=== PATIENT | male | born 1935 | race Caucasian/White ===

== ENCOUNTER 2020-08-19 07:37 | Inpatient (IN) | payer MEDICARE ==
--- NOTE | 2020-08-18 05:22 | HP ---
DATE OF ANTICIPATED ADMISSION: 08/19/2020. CHIEF COMPLAINT: Asymptomatic carotid bruit. HISTORY OF PRESENT ILLNESS: The patient is an 85-year-old man with stable angina. He underwent a community-based ultrasonographic screening panel that suggested carotid stenosis. This was corroborated by formal carotid ultrasound and confirmed by CT angiography. The patient denies any eye, speech, facial, or extremity symptoms consistent with TIAs. PAST MEDICAL HISTORY: Significant for coronary artery disease. He underwent cardiac catheterization a few years ago, working up angina, and medical management was pursued. He has mild chest squeezing when he walks long distances. On an echo in 06/2019 he had a peak transaortic gradient of about 20 mmHg (11 mm mean on echocardiography) and an LVEF of 50-55%. HOME MEDICATIONS: 1. Flomax. 2. Pitavastatin 2 mg a day. 3. Zetia 10 mg a day. 4. Baby aspirin a day. SOCIAL HISTORY: He smoked briefly in his 20s. FAMILY HISTORY: Significant for multiple first degree relatives living into their 90s or even past 100. He says that he is the youngest child with several siblings still alive and well in their 90s. REVIEW OF SYSTEMS: Negative for any TIA symptoms. It is positive for his class 2 angina. Negative for any shortness of breath. PHYSICAL EXAMINATION: VITAL SIGNS: His heart rate is 72, blood pressure 154/76. He is 5 feet and 8 inches, and weighs 179.5 pounds. HEENT: He has no xanthelasma. Very soft right carotid bruit. CHEST: Clear to auscultation. He has 1 to 2/6 harsh systolic murmur throughout the left sternal border. He has no gallop. He has palpable radials bilaterally. NEUROLOGIC: Cranial nerves 2 through 12 were grossly intact with the exception of being hard of hearing. His extremity strength is grossly normal and symmetric. DIAGNOSTIC STUDIES: His carotid ultrasound shows right-sided internal carotid velocities of 300, 199, and 112 cm/second with common carotid velocities of 111, 74, and 65, for a ratio of 4.07. On the left side, his internal carotid velocities are 77, 182, and 78, with common carotid velocities of 125, 92 and 74, for a ratio of 1.97. His CT angiogram shows about an 80% to 90% right carotid stenosis and about 30% or 40% left carotid stenosis. IMPRESSION AND RECOMMENDATIONS: High-grade asymptomatic carotid stenosis. We will plan on right carotid endarterectomy. Job ID: [id number] MTDD
[2020-08-18 10:53] VITALS: BMI 26.6
[~2020-08-19 07:37] MED LIST: Fentanyl 100 MCG/2 ML VIAL ONE
[2020-08-19] MEDS ORDERED: Heparin 5,000 UNITS/ML VIAL ONE (07:48)
[2020-08-19] MEDS ORDERED: Protamine Sulfate 50 MG/5 ML VIAL ONE (07:48)
[2020-08-19] MEDS ORDERED: Ondansetron PF 4 MG/2 ML Vial ONE (09:25)
[2020-08-19] MEDS ORDERED: Rocuronium Bromide 10 MG/ML (10ML VIAL) ONE (09:25)
[2020-08-19] MEDS ORDERED: PROPOFOL 200 MG/20 ML VIAL ONE (09:25)
[2020-08-19] MEDS ORDERED: Lidocaine 1% PF 5 ML VIAL ONE (09:25)
[2020-08-19] MEDS ORDERED: EPHEDRINE 25 MG/5 ML SYRINGE ONE (09:25)
[2020-08-19] MEDS ORDERED: PHENYLEPHRINE-NS 100 MCG/ML 10 ML SYRINGE ONE (09:25)
[2020-08-19] MEDS ORDERED: Glycopyrrolate 0.2 MG/ML 5 ML SYRINGE ONE (09:25)
[2020-08-19] MEDS ORDERED: Fentanyl 100 MCG/2 ML VIAL SLOW IVP PRN ×2 (12:23)
[2020-08-19] MEDS ORDERED: Acetaminophen 325 MG TAB PO PRN (12:23)
[2020-08-19] MEDS ORDERED: HYDROcodone/Acetaminophen 5/325 mg Tablet PO PRN ×2 (12:23)
[2020-08-19] MEDS ORDERED: Ondansetron PF 4 MG/2 ML Vial IVP PRN (12:23)
[2020-08-19] MEDS ORDERED: Phenylephrine 10 MG/ML VIAL ONE (13:00)
[2020-08-19] MEDS ORDERED: ePHEDrine 50 MG/ML VIAL ONE (16:04)
[2020-08-19] MEDS ORDERED: Promethazine HCl 25 MG/ML VIAL IM PRN (16:19)
[2020-08-19] MEDS ORDERED: Promethazine HCl 25 MG/ML VIAL SLOW IVP PRN (16:19)
[2020-08-19] MEDS ORDERED: Ondansetron HCl/PF 4 MG/2 ML Vial IVP PRN (16:19)
[2020-08-19] MEDS ORDERED: Fentanyl 100 MCG/2 ML VIAL ONE ×2 (16:50→18:11)
[2020-08-19 16:55] LABS: #Basophils 0.1 thou/uL (0.0-0.2); #Eosinphils 0.1 thou/uL (0.0-0.7); #Lymphocytes 2.7 thou/uL (1.20-3.40); #Monocytes 1.4 thou/uL (0.11-0.59); #Neutrophils 15.4 thou/uL (1.40-6.50); %Basophils 0.5 % (0.0-1.0); %Eosinophils 0.5 % (0.0-10.0); %Lymphocytes 13.5 % (21.0-51.0); %Monocytes 7.3 % (0.0-10.0); %Neutrophils 78.2 % (42.0-75.0); Mean Corpuscular HGB CONC 34.2 g/dL (32.0-36.0); Mean Corpuscular Hemoglobin 36.8 pg (27.0-31.0); Mean Platelet Volume 7.4 fL (7.4-10.4); Platelet Count 165 thou/uL (130-400); RBC Distribution Width 11.1 % (11.5-14.5); Red Blood Cell (RBC) Count 2.98 mill/uL (4.70-6.10); White Blood Cell (WBC) Count 19.7 thou/uL (4.8-10.8)
[2020-08-19] MEDS ORDERED: Phenylephrine 40 MG in Sodium Chloride 0.9% 250 ML 250 ML IVPB SCH (17:45)
[2020-08-19] MEDS: Sodium Chloride 0.9% 1,000 ML IV SCH (19:56)
--- NOTE | 2020-08-19 20:57 | OP ---
DATE OF PROCEDURE: 08/19/2020 PROCEDURE PERFORMED: Right carotid endarterectomy. PREOPERATIVE DIAGNOSIS: Right carotid stenosis. POSTOPERATIVE DIAGNOSIS: Right carotid stenosis. ANESTHESIA: General endotracheal anesthesia. INDICATIONS: The patient is an 85-year-old man, who is rather active. He underwent a community-based ultrasonographic screening that suggested carotid stenosis and this was corroborated by formal ultrasonography of his carotids, that demonstrated modestly elevated left-sided internal carotid velocities and ratio, but markedly elevated velocities and ratios on the right side. CT arteriography confirmed an 80% to 90% right carotid stenosis with about 30% or 40% left carotid lesion. After discussing natural history of carotid stenoses and treatment options, he has opted to undergo a right carotid endarterectomy. FINDINGS: Unable to advance the carotid shunt more than just a very few millimeter distal to the extent of the initial arteriotomy, and in order to aspirate on the shunt, it had to be withdrawn 1 or 2 mm. Difficulty with maintaining adequate flow from the shunt, ultimately required further mobilization of the internal carotid artery and extension of the arteriotomy, leading to the identification of a second lesion and plaque elevation. Initial pre-shunt clamp time was 9 minutes and shunt time 6 minutes. Followup clamp time was 12 minutes and shunt time 71 minute with a post-shunt clamp time at the termination of the procedure of 3 minutes. There was good ICA back bleeding, and at the conclusion of the procedure, the patient was lethargic and confused and unable to follow commands, but was able to move all extremities spontaneously. DESCRIPTION OF PROCEDURE: After informed consent was obtained, the patient was taken to the operating room and placed in the supine position on the operating table. After the induction of general anesthesia, the patient's neck was extended and rotated towards the left. His right neck was then prepped and draped in sterile fashion. An oblique incision was made in the skin crease on the neck with a knife and electrocautery, the incision was carried through the subcutaneous tissue and platysma and then anterior medial to the sternocleidomastoid muscle and internal jugular vein. The facial vein and other tributaries of the jugular system crossing the operative field were ligated and divided. The common carotid artery was dissected free from the sheath and the vagus nerve and looped with a vessel loop. The dissection was carried cephalad. The external carotid system was looped with a vessel loop. The dissection was carried up beyond the level of the digastric muscle, hypoglossal nerve. The sling vessels were ligated and divided and occipital branch was left intact as exposure of normal appearing and feeling internal carotid artery well beyond the palpable plaquing in its proximal 3 or 4 cm, and the patient was heparinized and after adequate circulation time of heparin, the internal carotid, common carotid, and external carotid systems were sequentially occluded. A longitudinal arteriotomy was made in the distal common carotid artery and extended proximally and distally with Tomlin scissors. The arteriotomy was extended beyond a web-like stenosis up onto a fairly normal-appearing internal carotid artery. An endarterectomy plane was developed with the tip of Tomlin scissors at the level of the distal common carotid artery and that was further developed using an elevator. The plaque was smoothly transected in the common carotid, everted from the external carotid system, and then broken off distally in the internal carotid. That distal feather was fairly easily tailored and then an intraluminal carotid shunt was inserted. It could only be advanced 3 to 4 mm, perhaps 5 beyond the extent of the arteriotomy without forcing it, and in order to aspirate, it had to be withdrawn about a millimeter or two. With that limb of the shunt clamped and held in position, the common carotid limb was advanced into the common carotid artery and aspirated, but allowing antegrade flow through the shunt, there was difficulty maintaining the shunt intraluminally and avoiding backbleeding around the shunt, even with the use of a shunt clamp. Shunting at that point was abandoned and forceps were used to maintain control of the internal carotid artery distal to the arteriotomy. Sharp and blunt dissection were used to mobilize more of the internal carotid artery, and when this had been accomplished, it became apparent that there was a second lesion distal to the previously isolated segment that had not been appreciated on the patient's previous imaging studies. The arteriotomy was extended beyond that. There was a small purplish area of the artery that was certainly quite worrisome for dissection, but the arteriotomy could be extended into a relatively normal internal carotid artery and it could be appreciated that plaque had probably been elevated, but a true dissection had not occurred. The elevated plaque was transected and then a straight 10-Togolese shunt was inserted. It had been placed in the common carotid artery first to allow for antegrade flushing, and then with it clamped, it was placed into the vessel that was considerably larger than the shunt, allowing for back bleeding before applying a shunt clamp. The distal transection was inspected and tailored somewhat and then tacked in place with several longitudinally oriented interrupted 7-0 Prolene sutures with the knots tied on the outside. The endarterectomy bed was inspected, so much endarterectomized vessel had been mobilized. That inspection of the entire endarterectomy bed was quite problematic, at first with the distal endarterectomy bed adequately debrided, an 8 cm bovine pericardial patch was brought to the field. It was oriented and then anastomosed to the endarterectomized artery distally coming around the distal extent of the arteriotomy and then progressing along one side medially down to the full extent of the patch, where it tapered down at the level of the base of the carotid bulb. This allowed for a more thorough inspection of the endarterectomy bed to complete its debridement. The lateral aspect of the suture line was taken down on the patch down to nearly the full extent of the patch at the bulb. The suture line was then brought up from the common carotid arteriotomy apex to the tip of the patch from the medial aspect and the suture line was secured there to allow for a very short remaining defect, through which the shunt was removed. Vascular control was reestablished on the common carotid with a vascular clamp and on the origin of the internal carotid with a vessel loop. The remaining suture line was completed and frustrated. The vessels were allowed to forward and backbleed to allow for flushing of any air or residual debris out the arteriotomy or into the external carotid system. Suture line was secured and antegrade flow was allowed first into the external carotid and then into the internal carotid system. Two bleeding points on the distal lateral aspect of the suture line were controlled, one with a simple suture and one with a [id number] suture. At that point, hemostasis was grossly adequate. The wound was packed off and the patient was given a partial reversal of heparin with protamine. After several minutes, the packing was removed and the suture line inspected. Hemostasis was adequate. The endarterectomized and patched segment of internal carotid that had been mobilized was quite tortuous. Surgicel was used to facilitate positioning of the vessel, so that it would not kink. The wound was then closed with running 3-0 Prolene, running 3-0 Vicryl for the platysma, and a running 4-0 Vicryl subcuticular suture and Steri-Strips for the skin. The wound was dressed, and the patient was awakened and extubated in the operating room. He initially was quite confused and did not follow commands well. There was some asymmetry to regaining spontaneous movement with right-sided movement starting first and then left-sided movement spontaneously. He was transported to the recovery area and as his sensorium cleared, he was able to follow commands with all 4 extremities with decreasing asymmetry and improving left-sided strength. Job ID: [id number]
[2020-08-19] MEDS ORDERED: Tamsulosin HCl 0.4 MG CAP PO SCH (21:00)
[2020-08-19] MEDS ORDERED: Atorvastatin Calcium 10 MG TAB PO SCH (21:00)
[2020-08-19] MEDS ORDERED: Aspirin 81 mg Enteric Coated Tablet PO SCH (21:00)
[2020-08-19] MEDS: Ezetimibe 10 MG TAB PO SCH ×2 (21:58→22:50)
[2020-08-20] MEDS: Sodium Chloride 0.9% 1,000 ML IV SCH ×2 (00:31→08:50)
[2020-08-20 05:30] LABS: #Eosinphils 0.1 thou/uL (0.0-0.7); #Monocytes 1.9 thou/uL (0.11-0.59); #Neutrophils 15.8 thou/uL (1.40-6.50); %Basophils 0.2 % (0.0-1.0); %Eosinophils 0.4 % (0.0-10.0); %Monocytes 9.6 % (0.0-10.0); %Neutrophils 79.8 % (42.0-75.0); Hemoglobin 10.3 g/dL (14.0-18.0); Mean Corpuscular HGB CONC 34.5 g/dL (32.0-36.0); Mean Corpuscular Hemoglobin 37.3 pg (27.0-31.0); Mean Platelet Volume 8.3 fL (7.4-10.4); Platelet Count 204 thou/uL (130-400); RBC Distribution Width 11.2 % (11.5-14.5); Red Blood Cell (RBC) Count 2.77 mill/uL (4.70-6.10); White Blood Cell (WBC) Count 19.8 thou/uL (4.8-10.8)
[2020-08-20] MEDS ORDERED: Tamsulosin HCl 0.4 MG CAP PO SCH (08:45)
[2020-08-20 08:47] VITALS: TEMP 98.4
[2020-08-20] MEDS ORDERED: traMADol HCl 50 MG TAB PO PRN (08:47)
--- NOTE | 2020-08-21 01:21 | DIS ---
DATE OF ADMISSION: 08/19/2020 DATE OF DISCHARGE: 08/20/2020 PRINCIPAL DIAGNOSIS: Right carotid stenosis. PROCEDURES PERFORMED: Right carotid endarterectomy with bovine pericardial patch angioplasty, 08/19/2020. HISTORY OF PRESENT ILLNESS AND HOSPITAL COURSE: The patient is a fairly robust 85-year-old who participated in community ultrasound screening that suggested carotid disease. Formal carotid ultrasound suggested moderate disease in the left carotid system, but high-grade stenosis in the right. This was confirmed by CTA with that imaging modality demonstrating about an 80% or 90% right carotid stenosis and a 30% or 40% left. He was admitted for right carotid endarterectomy. That procedure was quite notable for difficulty passing the internal carotid limb of the shunt due to what proved to be a 2nd lesion in the internal carotid distal to the extent of the original arteriotomy. This was associated with plaque elevation, significant blood loss, and ultimately a very long endarterectomized segment of carotid that required a very long shunt time to endarterectomize and patch. He was somewhat slow to wake up and there was some initial asymmetry and a spontaneous movement that gradually resolved over the next hour or two. He had some labile blood pressure. His hemoglobin was in the 11s postoperatively, it was 10.3 the morning after surgery. His blood pressure initially required the use of Chano-Synephrine to stabilize after having only transient response to fluid administration that gradually improved and he was successfully weaned off the Chano-Synephrine during the night and on postoperative day #1, his only issue was that of urinary retention. His vitals were stable. His voice was normal. His tongue was midline. His smile was symmetric and he was able to move all of his extremities equally and normally. He was able to breathe and swallow without any difficulty and there was minimal swelling associated with his wound. When he was able to void, he was discharged home to resume his home medications. Job ID: [id number]
[2020-08-21] MEDS ORDERED: Tamsulosin HCl 0.4 MG CAP PO SCH (21:00)
== END 2020-08-20 12:34 | disposition home or self-care (01) | DRG 39 ==
LOC: SURG A 07:37 → CCU 12:23
PROVIDERS: ADMIT Thoracic Surgery (Cardiothoracic Vascular Surgery); ATTEND Thoracic Surgery (Cardiothoracic Vascular Surgery)
PROC: 03CH0ZZ Extirpation of Matter from Right Common Carotid Artery, Open Approach (ICD-10-PCS; principal; 2020-08-19)
PROC: 03CM0ZZ Extirpation of Matter from Right External Carotid Artery, Open Approach (ICD-10-PCS; 2020-08-19)
PROC: 03CK0ZZ Extirpation of Matter from Right Internal Carotid Artery, Open Approach (ICD-10-PCS; 2020-08-19)
PROC: 03UK0KZ Supplement Right Internal Carotid Artery with Nonautologous Tissue Substitute, Open Approach (ICD-10-PCS; 2020-08-19)
DX: I65.21 Occlusion and stenosis of right carotid artery (principal); I25.118 Atherosclerotic heart disease of native coronary artery with other forms of angina pectoris; I73.9 Peripheral vascular disease, unspecified; N40.0 Benign prostatic hyperplasia without lower urinary tract symptoms; Z79.82 Long term (current) use of aspirin; Z79.899 Other long term (current) drug therapy; Z87.891 Personal history of nicotine dependence
CPT/HCPCS: 85025; 86850; 86900; 86901; J1642; J1644; J2370; J2405; J2704; J2720; J3010; J3490; J7620

== ENCOUNTER 2022-03-07 09:14 | Outpatient (CLI) | payer MEDICARE | END 2022-03-07 09:15 | disposition home or self-care (01) | LOC: RAD 09:14 | PROVIDERS: ATTEND Surgery | DX: K81.0 Acute cholecystitis (principal); Z97.8 Presence of other specified devices | CPT/HCPCS: 47531 ==

== ENCOUNTER 2022-03-30 09:17 | Outpatient (CLI) | payer MEDICARE ==
[2022-03-30 11:19] LABS: #Basophils 0.1 10x3/uL (0.0-0.2); #Eosinphils 0.2 10x3/uL (0.0-0.5); #Monocytes 0.9 10x3/uL (0.0-1.1); #Neutrophils 5.9 10x3/uL (1.5-8.4); %Basophils 1.4 % (0.0-2.0); %Eosinophils 1.7 % (0.0-6.0); %Lymphocytes 21.9 % (18.0-47.0); %Monocytes 9.4 % (0.0-10.0); Hemoglobin 12.4 g/dL (13.5-17.5); Mean Corpuscular HGB CONC 31.6 g/dL (32.0-36.0); Mean Corpuscular Hemoglobin 34.2 pg (27.0-33.0); Mean Platelet Volume 9.8 fl (7.4-10.4); Platelet Count 283 10x3/uL (150-450); RBC Distribution Width 12.4 % (11.5-14.5); Red Blood Cell (RBC) Count 3.63 10x6/uL (4.32-5.72); White Blood Cell (WBC) Count 9.1 10x3/uL (3.5-10.5)
[2022-03-30 11:41] LABS: Macrocytosis SLIGHT = 6-15 cells (100X) (0-5/hpf); Platelet Morphology Comment Appears Adequate
[2022-03-30 11:48] LABS: ALT (SGPT) 11 U/L (8-55); AST (SGOT) 15 U/L (5-34); Albumin 3.7 g/dL (3.4-4.8); Alkaline Phosphatase 72 U/L (40-110); Anion Gap 14 mmol/L (10-20); BUN (Urea Nitrogen) 15 mg/dL (8.4-25.7); Bilirubin, Direct 0.4 mg/dL (0.1-0.3); Bilirubin, Total 0.8 mg/dL (0.2-1.2); Calc. Creatinine Clearance 0 mL/min (70-130); Calcium 9.2 mg/dL (7.8-10.44); Carbon Dioxide 26 mmol/L (23-31); Chloride 105 mmol/L (98-107); Globulin 2.5 g/dL (2.4-3.5); Glucose 89 mg/dL (83-110); Potassium 4.6 mmol/L (3.5-5.1); Protein, Total 6.2 g/dL (5.8-8.1); Sodium 140 mmol/L (136-145)
[2022-03-30 20:33] LABS: SARS-CoV-2 PCR by NAA Not Detected (NotDetected)
== END 2022-03-30 09:18 | disposition home or self-care (01) ==
LOC: LABBT 09:17
PROVIDERS: ATTEND Surgery
DX: Z01.812 Encounter for preprocedural laboratory examination (principal); K81.0 Acute cholecystitis
CPT/HCPCS: 80053; 80076; 85025; U0003; U0005

== ENCOUNTER 2022-04-04 06:54 | Observation (INO) | payer MEDICARE ==
[2022-04-04] MEDS ORDERED: fentaNYL Citrate/PF 100 MCG/2 ML SYRINGE ONE (09:14)
[2022-04-04] MEDS ORDERED: Lidocaine 1% w/Epinephrine 1:100K 20 ML VIAL ONE (09:19)
[2022-04-04] MEDS ORDERED: Sodium Chloride 0.9% 100 ML ONE (09:30)
[2022-04-04] MEDS ORDERED: cefOXitin 2 GM VIAL ONE (09:30)
[2022-04-04] MEDS ORDERED: Bupivacaine 0.25% HCL 30 ML VIAL ONE (09:35)
[2022-04-04] MEDS ORDERED: Ondansetron PF 4 MG/2 ML Vial ONE (09:54)
[2022-04-04] MEDS ORDERED: PHENYLEPHRINE-NS 100 MCG/ML 10 ML SYRINGE ONE (09:54)
[2022-04-04] MEDS ORDERED: Rocuronium Bromide 10 MG/ML (10ML VIAL) ONE (09:54)
[2022-04-04] MEDS ORDERED: Metoclopramide HCl 10 MG/2 ML VIAL ONE (09:54)
[2022-04-04] MEDS ORDERED: PROPOFOL 200 MG/20 ML VIAL ONE (09:54)
[2022-04-04] MEDS ORDERED: SUGAMMADEX SODIUM 200 MG/2 ML VIAL ONE (10:25)
[2022-04-04] MEDS ORDERED: HYDROcodone/Acetaminophen 5/325 mg Tablet ONE ×2 (11:58→12:39)
[2022-04-04 15:36] LABS: Actual Bicarbonate (HCO3v) 22 mEq/L (22-28); Base Excess -5.5 mEq/L (-2.0 to +3.0); Calcium, Ionized (venous) 1.14 mmol/L (1.16-1.32); Chloride (VBG) 101 mmol/L (98-106); Hemoglobin (Hb) 14.9 g/dL (12.6-17.4); Potassium (VBG) 4.46 mmol/L (3.70-5.30); Sodium 136.8 mmol/L (133-146); pH (venous) 7.27 (7.32-7.43)
[2022-04-04 15:52] LABS: Hemoglobin 14.4 g/dL (14.0-18.0); Mean Corpuscular HGB CONC 31.2 g/dL (32.0-36.0); Mean Corpuscular Hemoglobin 34.3 pg (27.0-31.0); Mean Platelet Volume 6.9 fL (7.4-10.4); Platelet Count 308 thou/uL (130-400); RBC Distribution Width 12.9 % (11.5-14.5); Red Blood Cell (RBC) Count 4.21 mill/uL (4.70-6.10)
[2022-04-04 16:06] LABS: Band 15 % (5-11); Lymphocytes 2 % (21-51); MDiff Complete? YES; Macrocytosis SLIGHT = 6-15 cells (100X) (0-5/hpf); Monocytes 4 % (0-10); Neutrophil 78 % (42-75); Platelet Morphology Comment Appears Adequate; Polychromasia SLIGHT = 2-3 cells (100X) (0-2/hpf); Reactive Lymphocytes 1 % (0-10); Stomatocytes SLIGHT = 2-5 cells (100X) (0-1/hpf)
[2022-04-04 16:11] LABS: ALT (SGPT) 20 U/L (8-55); AST (SGOT) 29 U/L (5-34); Albumin 3.6 g/dL (3.4-4.8); Alkaline Phosphatase 77 U/L (40-110); Anion Gap 16 mmol/L (10-20); BUN (Urea Nitrogen) 15 mg/dL (8.4-25.7); Bilirubin, Total 1.4 mg/dL (0.2-1.2); Calc. Creatinine Clearance 62 mL/min (70-130); Calcium 8.8 mg/dL (7.8-10.44); Carbon Dioxide 26 mmol/L (23-31); Chloride 101 mmol/L (98-107); Glucose 158 mg/dL (83-110); Potassium 4.5 mmol/L (3.5-5.1); Protein, Total 6.6 g/dL (5.8-8.1); Sodium 138 mmol/L (136-145)
[2022-04-04 16:53] VITALS: BMI 23.6
[2022-04-04] MEDS ORDERED: Furosemide 20 MG/2 ML VIAL SLOW IVP SCH (17:30)
[2022-04-04] MEDS ORDERED: Cepastat Lozenges 1 LOZ PO PRN (17:34)
[2022-04-04] MEDS ORDERED: Acetaminophen 500 MG TAB PO PRN (17:34)
[2022-04-04] MEDS ORDERED: Benzonatate 100 MG CAP PO PRN (17:34)
[2022-04-04] MEDS ORDERED: Artificial Tear Sol 15 ML BOT EA EYE PRN (17:34)
[2022-04-04] MEDS ORDERED: Moisturizing Cream (Eucerin) 113 GM JAR TOP PRN (17:34)
[2022-04-04] MEDS ORDERED: Ondansetron ODT 4 MG TAB PO PRN (17:34)
[2022-04-04] MEDS ORDERED: Sodium Chloride 0.65% Nasal 44 ML BOT EA NARE PRN (17:34)
[2022-04-04] MEDS ORDERED: Acetaminophen 650 MG Suppository PR PRN (17:34)
[2022-04-04] MEDS ORDERED: Ibuprofen 200 MG TAB PO PRN (17:36)
[2022-04-04] MEDS ORDERED: HYDROcodone/Acetaminophen 5/325 mg Tablet PO PRN (17:36)
[2022-04-04] MEDS ORDERED: Tamsulosin HCl 0.4 MG CAP PO SCH (21:00)
[2022-04-05 07:40] LABS: Anion Gap 10 mmol/L (10-20); BUN (Urea Nitrogen) 18 mg/dL (8.4-25.7); Calc. Creatinine Clearance 63 mL/min (70-130); Calcium 8.9 mg/dL (7.8-10.44); Carbon Dioxide 31 mmol/L (23-31); Chloride 101 mmol/L (98-107); Glucose 125 mg/dL (83-110); Potassium 4.6 mmol/L (3.5-5.1); Sodium 137 mmol/L (136-145)
[2022-04-05] MEDS ORDERED: Cyanocobalamin (Vitamin B-12) 1,000 MCG TAB PO SCH (09:00)
[2022-04-05] MEDS ORDERED: Cholecalciferol 1,000 UNITS (25 MCG) TAB PO SCH (09:00)
[2022-04-05] MEDS ORDERED: Furosemide 20 MG TAB PO SCH (10:00)
[2022-04-05 13:12] VITALS: BP 117/74; TEMP 97.8
[2022-04-05] MEDS ORDERED: Aspirin 81 mg Enteric Coated Tablet PO SCH (21:00)
== END 2022-04-05 13:27 | disposition home or self-care (01) ==
LOC: SDC 06:54 → T4-A 14:01
PROVIDERS: ADMIT Surgery; ATTEND Surgery
PROC: 0FT44ZZ Resection of Gallbladder, Percutaneous Endoscopic Approach (ICD-10-PCS; principal; 2022-04-04)
DX: K81.2 Acute cholecystitis with chronic cholecystitis (principal); K82.A1 Gangrene of gallbladder in cholecystitis; I10 Essential (primary) hypertension; N40.1 Benign prostatic hyperplasia with lower urinary tract symptoms; E78.00 Pure hypercholesterolemia, unspecified; R06.00 Dyspnea, unspecified; J90 Pleural effusion, not elsewhere classified; I25.10 Atherosclerotic heart disease of native coronary artery without angina pectoris; Z87.891 Personal history of nicotine dependence; Z79.82 Long term (current) use of aspirin; Z79.899 Other long term (current) drug therapy; Z88.5 Allergy status to narcotic agent; Z88.8 Allergy status to other drugs, medicaments and biological substances
CPT/HCPCS: 47562; 71045; 71046; 80048; 80053; 82805; 83880; 85025; 93005; 97139; C1713 ×2; 36415; 88304; 93010; 96374; G0378; J0694; J1940; J2405; J2704; J2765; J3490; S0020

== ENCOUNTER 2022-04-19 14:57 | Outpatient (CLI) | payer MEDICARE | END 2022-04-19 14:58 | disposition home or self-care (01) | LOC: BICRAD 14:57 | PROVIDERS: ATTEND Internal Medicine Cardiovascular Disease | DX: J90 Pleural effusion, not elsewhere classified (principal) | CPT/HCPCS: 71046 ==

== ENCOUNTER 2022-05-27 09:47 | Outpatient (CLI) | payer MEDICARE | END 2022-05-27 09:48 | disposition home or self-care (01) | LOC: BICRAD 09:47 | PROVIDERS: ATTEND Nurse Practitioner Family | DX: J90 Pleural effusion, not elsewhere classified (principal); D50.8 Other iron deficiency anemias | CPT/HCPCS: 36415; 71046; 80048; 82728; 83540; 83550; 85025 ==

== ENCOUNTER 2022-11-08 12:44 | Inpatient (IN) | payer MEDICARE ==
[2022-11-08 17:00] VITALS: BMI 26.5
[2022-11-08] MEDS ORDERED: Ipratropium/Albuterol 3 ML NEB NEB PRN (18:02)
[2022-11-08] MEDS ORDERED: Dextrose 5% in Water 1,000 ML IV PRN (18:02)
[2022-11-08] MEDS ORDERED: Ondansetron PF 4 MG/2 ML Vial IVP PRN (18:02)
[2022-11-08] MEDS ORDERED: Dextrose 50% Abboject 50 ML SYRINGE SLOW IVP PRN (18:02)
[2022-11-08] MEDS ORDERED: TETANUS, DIPHTHERIA TOX,ADULT (TDVAX) 0.5 ML VIAL IM ONE (18:02)
[2022-11-08] MEDS ORDERED: Acetaminophen 500 MG TAB PO PRN (18:05)
[2022-11-08 19:26] LABS: SARS-CoV-2 NAA Rapid Test Not Detected (NotDetected)
[2022-11-08 19:44] LABS: Troponin I Less than 0.010 ng/mL (< 0.028)
[2022-11-08] MEDS ORDERED: Tamsulosin HCl 0.4 MG CAP PO SCH (21:00)
[2022-11-08] MEDS: Senokot S 8.6-50 MG TAB PO SCH (21:34)
[2022-11-08] MEDS: Famotidine 20 MG TAB PO SCH (21:34)
[2022-11-09 06:44] LABS: #Basophils 0.1 thou/uL (0.0-0.2); #Eosinphils 0.2 thou/uL (0.0-0.7); #Lymphocytes 1.9 thou/uL (1.20-3.40); #Monocytes 0.9 thou/uL (0.11-0.59); #Neutrophils 5.9 thou/uL (1.40-6.50); %Basophils 0.9 % (0.0-1.0); %Lymphocytes 21.2 % (21.0-51.0); %Neutrophils 65.9 % (42.0-75.0); Hemoglobin 13.8 g/dL (14.0-18.0); Mean Corpuscular HGB CONC 34.6 g/dL (32.0-36.0); Mean Corpuscular Hemoglobin 36.6 pg (27.0-31.0); Mean Platelet Volume 7.4 fL (7.4-10.4); Platelet Count 218 10x3/uL (130-400); Red Blood Cell (RBC) Count 3.76 mill/uL (4.70-6.10); White Blood Cell (WBC) Count 8.9 10x3/uL (4.8-10.8)
[2022-11-09 07:04] LABS: Anion Gap 10 mmol/L (10-20); BUN (Urea Nitrogen) 19 mg/dL (8.4-25.7); Calc. Creatinine Clearance 62 mL/min (70-130); Carbon Dioxide 26 mmol/L (23-31); Chloride 104 mmol/L (98-107); Estimated GFR 86; Glucose 96 mg/dL (83-110); Magnesium 2.1 mg/dL (1.6-2.6); Phosphorus 3.5 mg/dL (2.3-4.7); Potassium 4.5 mmol/L (3.5-5.1); Sodium 135 mmol/L (136-145)
[2022-11-09] MEDS: Ezetimibe 10 MG TAB PO SCH (09:35)
[2022-11-09] MEDS: Senokot S 8.6-50 MG TAB PO SCH ×2 (09:35→21:52)
[2022-11-09] MEDS: Polyethylene Glycol 3350 17 GM Packet PO SCH (09:35)
[2022-11-09] MEDS: Famotidine 20 MG TAB PO SCH ×2 (09:35→21:52)
[2022-11-09] MEDS ORDERED: Sodium Chloride 0.9% 500 ML IV SCH (11:00)
[2022-11-09] MEDS: Midodrine HCl 5 MG TAB PO SCH ×2 (12:41→21:51)
[2022-11-09] MEDS ORDERED: Tamsulosin HCl 0.4 MG CAP PO SCH (21:00)
[2022-11-10 04:39] VITALS: TEMP 98.2
[2022-11-10 06:52] LABS: #Basophils 0.1 thou/uL (0.0-0.2); #Eosinphils 0.2 thou/uL (0.0-0.7); #Lymphocytes 1.9 thou/uL (1.20-3.40); #Monocytes 0.9 thou/uL (0.11-0.59); #Neutrophils 5.6 thou/uL (1.40-6.50); %Basophils 1.3 % (0.0-1.0); %Lymphocytes 21.8 % (21.0-51.0); %Monocytes 10.6 % (0.0-10.0); %Neutrophils 64.3 % (42.0-75.0); Hemoglobin 13.9 g/dL (14.0-18.0); Mean Corpuscular HGB CONC 33.9 g/dL (32.0-36.0); Mean Corpuscular Hemoglobin 36.1 pg (27.0-31.0); Mean Platelet Volume 7.3 fL (7.4-10.4); Platelet Count 218 10x3/uL (130-400); RBC Distribution Width 11.2 % (11.5-14.5); Red Blood Cell (RBC) Count 3.86 mill/uL (4.70-6.10); White Blood Cell (WBC) Count 8.7 10x3/uL (4.8-10.8)
[2022-11-10 07:12] LABS: Anion Gap 10 mmol/L (10-20); BUN (Urea Nitrogen) 18 mg/dL (8.4-25.7); Calc. Creatinine Clearance 54 mL/min (70-130); Calcium 9.4 mg/dL (7.8-10.44); Carbon Dioxide 28 mmol/L (23-31); Chloride 104 mmol/L (98-107); Estimated GFR 83; Glucose 93 mg/dL (83-110); Magnesium 2.1 mg/dL (1.6-2.6); Phosphorus 3.4 mg/dL (2.3-4.7); Sodium 137 mmol/L (136-145)
[2022-11-10] MEDS: Senokot S 8.6-50 MG TAB PO SCH (09:30)
[2022-11-10] MEDS: Famotidine 20 MG TAB PO SCH (09:30)
[2022-11-10] MEDS: Midodrine HCl 5 MG TAB PO SCH (09:30)
[2022-11-10] MEDS: Ezetimibe 10 MG TAB PO SCH (09:30)
[2022-11-10] MEDS: Polyethylene Glycol 3350 17 GM Packet PO SCH (09:30)
[2022-11-10 14:40] VITALS: BP 67/52
== END 2022-11-10 15:20 | disposition home or self-care (01) | DRG 86 ==
LOC: SURG A 14:28
PROVIDERS: ADMIT Surgery; ATTEND Surgery
DX: S06.5X0A Traumatic subdural hemorrhage without loss of consciousness, initial encounter (principal); I50.32 Chronic diastolic (congestive) heart failure; E78.5 Hyperlipidemia, unspecified; I25.10 Atherosclerotic heart disease of native coronary artery without angina pectoris; N40.0 Benign prostatic hyperplasia without lower urinary tract symptoms; I11.0 Hypertensive heart disease with heart failure; Z20.822 Contact with and (suspected) exposure to COVID-19; W06.XXXA Fall from bed, initial encounter; I95.1 Orthostatic hypotension; R29.6 Repeated falls; Z88.5 Allergy status to narcotic agent; Z79.82 Long term (current) use of aspirin; Z79.899 Other long term (current) drug therapy
CPT/HCPCS: 36415; 70450; 80048; 82607; 83735; 83880; 84100; 84484; 85025; 93005; 93010; 93306; 93880; J7030; U0002

== ENCOUNTER 2023-02-23 08:24 | Outpatient (CLI) | payer MEDICARE | END 2023-02-23 08:25 | disposition home or self-care (01) | LOC: SCSCT 08:24 | PROVIDERS: ATTEND Neurological Surgery | DX: S06.5X0D Traumatic subdural hemorrhage without loss of consciousness, subsequent encounter (principal); R93.0 Abnormal findings on diagnostic imaging of skull and head, not elsewhere classified | CPT/HCPCS: 70450 ==